=== PATIENT | female | born 1960 | race American Indian/Alaskan Native ===

== ENCOUNTER 2017-03-23 13:46 | Emergency (ER) | payer OTHER ==
[2017-03-23 13:55] VITALS: BP 147/97
[2017-03-23] MEDS ORDERED: TORADOL IM ONE (17:38)
[2017-03-23] MEDS ORDERED: FLEXERIL PO ONE (17:38)
--- NOTE | 2017-03-23 17:43 | Emergency Department Report ---
ED Lower Extremity HPI - General Chief Complaint: Extremity Injury, Lower Stated Complaint: LEFT THIGH PAIN Time Seen by Provider: 03/23/17 17:29 Source: patient Mode of arrival: Ambulatory Limitations: No Limitations - History of Present Illness Initial Comments: pt is a 56 y/o aaf wtihhx of htn, who presents for left posterior thigh pain x 5 wks pt endorses that she first noted pain 5 weeks ago with twising injury reaching up stairs in her home. pain is left lumbar radiating into left thigh, there is no swelling no fever no numbness no tingling no weakness there has been no sob no dizziness no lightheadedness no cp MD Complaint: thigh injury Onset/Timin -: week(s) Injury: Thigh: Left Type of Injury: hyperextension Place: home Severity: moderate Severity scale (0 -10): 5 Improves With: other (standing and stretching ) Worsens With: other (prolonged sitting ) Context: other (bending twisting injury ) Associated Symptoms: ambulatory. denies: numbness, tingling - Related Data Previous Rx's Medication Instructions Recorded Last Taken Type Cyclobenzaprine [Flexeril] 10 mg PO TID PRN #30 tablet 03/23/17 Unknown Rx Naproxen [Naprosyn] 500 mg PO BID PRN #60 tablet 03/23/17 Unknown Rx Allergies Allergy/AdvReac Type Severity Reaction Status Date / Time No Known Allergies Allergy Unverified 03/23/17 13:52 ED Review of Systems ROS: Stated complaint: LEFT THIGH PAIN Other details as noted in HPI Constitutional: denies: chills, fever Eyes: denies: eye pain, eye discharge, vision change ENT: denies: ear pain, throat pain Respiratory: denies: cough, shortness of breath, wheezing Cardiovascular: denies: chest pain, palpitations Endocrine: no symptoms reported Gastrointestinal: denies: abdominal pain, nausea, diarrhea Genitourinary: denies: urgency, dysuria, discharge Musculoskeletal: back pain, myalgia Skin: denies: rash, lesions Neurological: denies: headache, weakness, numbness, paresthesias, confusion, abnormal gait, vertigo Psychiatric: denies: anxiety, depression, suicidal thoughts Hematological/Lymphatic: denies: easy bleeding, easy bruising ED Past Medical Hx - Past Medical History Hx Hypertension: Yes - Surgical History Past Surgical History?: Yes Additional Surgical History: T&A,partial Hysterectomy - Social History Smoking Status: Never Smoker Substance Use Type: Alcohol - Medications Home Medications: Home Medications Medication Instructions Recorded Confirmed Last Taken Type Cyclobenzaprine [Flexeril] 10 mg PO TID PRN #30 tablet 03/23/17 Unknown Rx Naproxen [Naprosyn] 500 mg PO BID PRN #60 tablet 03/23/17 Unknown Rx ED Physical Exam - General Limitations: No Limitations General appearance: alert, in no apparent distress - Head Head exam: Present: atraumatic, normocephalic - Eye Eye exam: Present: normal appearance - ENT ENT exam: Present: mucous membranes moist - Neck Neck exam: Present: normal inspection - Respiratory Respiratory exam: Present: normal lung sounds bilaterally. Absent: respiratory distress, wheezes, stridor - Cardiovascular Cardiovascular Exam: Present: regular rate, normal rhythm. Absent: systolic murmur, diastolic murmur, rubs, gallop - GI/Abdominal GI/Abdominal exam: Present: soft, normal bowel sounds - Rectal Rectal exam: Present: deferred - Extremities Exam Extremities exam: Present: full ROM, tenderness (left lateral and posterior thigh pain no fever no ecchymosis PPEPB+2 no numbness no tingling rom intact strength 5/5), normal capillary refill. Absent: pedal edema, joint swelling, calf tenderness - Expanded Lower Extremity Exam Left Upper Leg exam: Present: normal inspection, full ROM (full rom pain with flex there is no weakness ), tenderness (left lateral and posterior thigh no numbness no tingling ). Absent: swelling, abrasion, laceration, ecchymosis, deformity, crepidus, dislocation, erythema Lower Leg exam: Present: normal inspection, full ROM Ankle exam: Present: normal inspection, full ROM Foot/Toe exam: Present: normal inspection, full ROM Neuro vascular tendon exam: Present: no vascular compromise, pulse deficit. Absent: abnormal cap refill, motor deficit, sensory deficit, tendon deficit, extremity cold to touch, pallor, abnormal 2-point discrimination, decreased fine /light touch, foot drop, peroneal nerve deficit, significant pain with passive ROM of distal joint - Back Exam Back exam: Present: normal inspection, full ROM. Absent: tenderness, CVA tenderness (R), CVA tenderness (L), muscle spasm, paraspinal tenderness, vertebral tenderness, rash noted - Expanded Back Exam Expanded Back exam: Absent: saddle anesthesia Back exam: Sciatic Notch Tenderness: Left, Positive Straight Leg Raise: Left - Neurological Exam Neurological exam: Present: alert, oriented X3 ED Course Vital Signs 03/23/17 13:52 Temperature 98.2 F Pulse Rate 67 Respiratory 16 Rate Blood Pressure 147/97 O2 Sat by Pulse 100 Oximetry ED Lower Extremity MDM - Medical Decision Making pt is a 56 y/o aaf wtihhx of htn, who presents for left posterior thigh pain x 5 wks pt endorses that she first noted pain 5 weeks ago with twising injury reaching up stairs in her home. 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 Cuellar in 3 days pt verbalized agreement and understanding of same. pt is improved to 08/11 with toradal and flexeril will dc with naproxen and flexeril moist heat therapy with strict instructions to return to emergency if symptoms worsen. Critical care attestation.: If time is entered above; I have spent that time in minutes in the direct care of this critically ill patient, excluding procedure time. ED Disposition Clinical Impression: Hamstring strain Qualifiers: Laterality: left Qualified Code(s): S76.312A - Strain of muscle, fascia and tendon of the posterior muscle group at thigh level, left thigh, initial encounter Disposition: DC- TO HOME OR SELFCARE Is pt being admited?: No Does the pt Need Aspirin: No Condition: Good Instructions: Hamstring Injury (ED) Prescriptions: Cyclobenzaprine [Flexeril] 10 mg PO TID PRN #30 tablet PRN Reason: Muscle Spasm Naproxen [Naprosyn] 500 mg PO BID PRN #60 tablet PRN Reason: Pain Referrals: MARIO FAUSTIN [Other] - 3-5 Days [facility] MD [Staff Physician] - 3-5 Days Forms: Work/School Release Form(ED) Time of Disposition: 18:02
== END 2017-03-23 18:12 | disposition home or self-care (01) ==
LOC: ED 13:46
DX: S76.312A Strain of muscle, fascia and tendon of the posterior muscle group at thigh level, left thigh, initial encounter (principal); I10 Essential (primary) hypertension; Z90.710 Acquired absence of both cervix and uterus; X58.XXXA Exposure to other specified factors, initial encounter; Y93.89 Activity, other specified; Y99.8 Other external cause status; Y92.098 Other place in other non-institutional residence as the place of occurrence of the external cause
CPT/HCPCS: 96372; 99282; J1885